=== PATIENT | female | born 1985 | race Caucasian/White ===

== ENCOUNTER 2019-11-20 16:39 | Outpatient (CLI) | payer BC ==
[~2019-11-20] VITALS: Ht 172.7 cm; Wt 121.8 kg
[2019-11-20] VITALS (7 sets, daily range): BP systolic 128–149; BP diastolic 73–93; PULSE 96–115; TEMP 98
[~2019-11-20 16:39] MED LIST: MOTRIN 800800 MG/TAB PO; PERCOCET 325 MG1 TA2 PO; PRENATAL1 TA7 PO
--- NOTE | 2019-11-20 16:45 | NUR ---
Pt. ambulatory to the unit. Pt. sent over from the office for BP evaluation. Pt. verbalized having a dull headache since yesterday morning. States she has taken tylenol. Denies visual disturbances, nausea or vomiting, RUQ pain, or swelling. Pt. reports good movement, denies VB, CTX, or LOF. Pt. oriented to room and plan of care. Pt. changed into gown, UA received, EFM and TOCO on and tracing. Vital signs taken. Assessment completed. joined pt. at the bedside.
[2019-11-20 17:07] LABS: COLLECTION METHOD CLEAN CATCH
[2019-11-20 17:24] LABS: BASO % 0.2 % (0.0-2.0); EOS # 0.1 (0.0-0.7); EOS % 0.9 % (0-4.0); GRAN # 9.8 (1.4-6.5); GRAN % 77.4 % (42.2-75.2); HEMOGLOBIN 11.9 g/dl (12.5-16.0); LYMPH # 1.6 (1.2-3.4); LYMPH % 12.9 % (20.0-51.0); MEAN CELL VOLUME 83 fl (80.0-100.0); MEAN CORPUSCULAR HEMOGLOBIN 27 pg (27.0-31.0); MEAN CORPUSCULAR HGB CONC 33 g/dl (33.0-37.0); MEAN PLATELET VOLUME 10.3 fl (7.4-10.4); MONO % 7.5 % (1.7-9.3); PLATELET COUNT 212 K/mm3 (130-400); RED BLOOD COUNT 4.38 M/mm3 (4.10-5.30); REDCELL DISTRIBUTION WIDTH-CV 14.6 % (11.5-14.5)
[2019-11-20 17:25] LABS: ALBUMIN 3.5 gm/dL (3.5-5.0); BILIRUBIN,TOTAL 0.2 mg/dL (0.0-1.0); CALCIUM 8.8 mg/dL (8.4-10.2); CREATININE, serum 0.59 (0.52-1.25); POTASSIUM 3.8 mmol/L (3.4-5.0); TOTAL PROTEIN 6.9 gm/dL (6.4-8.2)
[2019-11-20 17:26] LABS: HEMATOCRIT 36.2 % (37.0-47.0)
[2019-11-20 17:33] LABS: PH 7 (5-8); SQUAMOUS EPITHELIAL 0-2 /hpf; URINE APPEARANCE Hazy; URINE BACTERIA Moderate /hpf; URINE BILIRUBIN Negative (NEGATIVE); URINE BLOOD Negative (NEGATIVE); URINE COLOR Straw; URINE GLUCOSE Negative (NEGATIVE); URINE KETONE Negative (NEGATIVE); URINE LEUKOCYTE ESTERASE Negative (NEGATIVE); URINE NITRATE Negative (NEGATIVE); URINE PROTEIN(semi-quant) Negative (NEGATIVE); URINE RBC 0-2 /hpf; URINE UROBILINOGEN Negative (NEGATIVE)
--- NOTE | 2019-11-20 18:05 | NUR ---
Pt. discharged home. Discharge instructions and return precautions explained and pt. verbalized understanding with no questions. Pt. instructed to call or return with BP >160/110, increased swelling, blurred vision or seeing spots, RUQ pain, decreased FM, LOF, VB, painful and consistent contractions, not feeling well or any concerns. Pt. ambulatory off the unit with by her side.
== END 2019-11-20 18:05 | disposition home or self-care (01) ==
LOC: LDRO 16:39
PROVIDERS: Obstetrics & Gynecology
DX: O13.3 Gestational [pregnancy-induced] hypertension without significant proteinuria, third trimester (principal); Z3A.37 37 weeks gestation of pregnancy

== ENCOUNTER 2020-12-29 09:51 | Outpatient (RCR) | payer OTHER | END 2021-01-27 | disposition home or self-care (01) | LOC: WSOH | DX: S83.92XA Sprain of unspecified site of left knee, initial encounter (principal); Y99.0 Civilian activity done for income or pay ==